=== PATIENT | male | born 1975 | race Caucasian/White ===

== ENCOUNTER 2018-01-17 09:58 | Day surgery (SDC) | payer MEDICAID ==
[2018-01-17] MEDS ORDERED: LR 1,000 ML IV ONE (10:12)
[2018-01-17] MEDS ORDERED: LIDOCAINE 1% 2 ML INJ ID PRN (10:12)
[2018-01-17] MEDS ORDERED: BUPIVACAINE 0.5% 30 ML SDV ONE (10:42)
[2018-01-17] MEDS ORDERED: BACITRACIN 50,000 UNITS/10 ML SYR IRR ONE (10:43)
[2018-01-17] MEDS ORDERED: POLYMYXIN B SULFATE 500,000 UNIT/10 ML SYR IRR ONE (10:43)
[2018-01-17] MEDS ORDERED: ceFAZolin 2 GM/SWFI 20 ML SYR IVP ONE (10:44)
--- NOTE | 2018-01-17 10:44 | PDANEPAE ---
ANE History of Present Illness 42 year old male for mucoid cyst removal from toe. PMHx includes CONCETTA (on CPAP) , seizure D.O./Epilepsy. ANE Past Medical History - Cardiovascular History Hx Hypertension: No Hx Arrhythmias: No Hx Chest Pain: No Hx Coronary Artery / Peripheral Vascular Disease: No Hx CHF / Valvular Disease: No Hx Palpitations: No - Pulmonary History Hx COPD: No Hx Asthma/Reactive Airway Disease: No Hx Recent Upper Respiratory Infection: No Hx Oxygen in Use at Home: Yes Hx Sleep Apnea: Yes Sleep Apnea Screening Result - Last Documented: Positive Pulmonary History Comment: SLEEP APNEA POS W/CPAP - Neurologic History Hx Cerebrovascular Accident: No Hx Seizures: Yes Hx Dementia: No Neurologic History Comment: EPILEPSY. LAST SEIZURE 1.5 WKS AGO - Endocrine History Hx Diabetes: No Hypothyroid: No Hyperthyroid: No Obesity: no - Renal History Hx Renal Disorders: No - Liver History Hx Hepatic Disorders: No - Neurological & Psychiatric Hx Hx Neurological and Psychiatric Disorders: No - Cancer History Hx Cancer: No - Congenital Disorder History Hx Congenital Disorders: No - GI History Hx Gastrointestinal Disorders: No Gastrointestinal History Comment: NEG - Other Health History Other Health History: NEG - Chronic Pain History Chronic Pain: No - Surgical History Prior Surgeries: SINUS SURGERY ANE Review of Systems Review of systems is: negative Review of Systems: - Exercise capacity Exercise capacity: >=4 METS METS (RN): 5 METS ANE Patient History - Allergies Allergies/Adverse Reactions: zonisamide [From Zonegran] Allergy (Verified 01/17/18 10:29) RESPIRATORY SUPRESSION - Home Medications Home medications: home medication list seen and reviewed Home Medications: Fycompa 01/12/18 [Last Taken 01/16/18] Lamictal 01/12/18 [Last Taken 01/16/18] Lipitor 01/12/18 [Last Taken 01/16/18] - NPO status NPO Status: no food or drink >8 hours NPO Since - Liquids (Date): 01/16/18 NPO Since - Liquids (Time): 22:00 NPO Since - Solids (Date): 01/16/18 NPO Since - Solids (Time): 22:00 - Anes Hx Anes Hx: no prior problems - Smoking Hx Smoking Status: Never smoked Marijuana use: No - Alcohol Use Alcohol Use: Rarely - Family Anes Hx Family Anes Hx: neg - N/A Family Hx Anesthesia Complications: NEG ANE Labs/Vital Signs - Vital Signs Vital Signs: reviewed preoperatively; see RN documention for details Blood Pressure: 124/84 Heart Rate: 88 Respiratory Rate: 12 O2 Sat (%): 95 Height: 170.18 cm Weight: 78.471 kg ANE Physical Exam - Airway Neck exam: FROM Mallampati Score: Class 2 Mouth exam: normal dental/mouth exam - Pulmonary Pulmonary: no respiratory distress - Cardiovascular Cardiovascular: regular rate and rhythym - ASA Status ASA Status: III ANE Anesthesia Plan Anesthesia Plan: MAC Total IV Anesthesia: Yes
[2018-01-17] MEDS ORDERED: LIDOCAINE 2% 5 ML SDV ONE (10:45)
[2018-01-17] MEDS ORDERED: ceFAZolin 2 GM/SWFI 2 GM/20 ML SYR IVP ONE (10:50)
--- NOTE | 2018-01-17 10:51 | PDHPUP ---
History & Physical Update H&P update statement: This history and physical update is based on an assessment of the patient which was completed after admission or registration (within 24 hours), but prior to the surgery/procedure. H&P update: H&P reviewed & patient examined, no change in patient's condition since H&P completed
[2018-01-17] MEDS ORDERED: PROPOFOL/EMULSION 500 MG/50 ML BOTTLE IV ONE (10:59)
[2018-01-17] MEDS ORDERED: ONDANSETRON 4 MG/2 ML VIAL IVP PRN (11:21)
[2018-01-17] MEDS ORDERED: HYDROCODONE/APAP 5/325 TAB PO PRN (11:21)
[2018-01-17] MEDS ORDERED: fentaNYL 100 MCG/2 ML INJ IVP PRN (11:21)
[2018-01-17] MEDS ORDERED: NALOXONE HCL 0.4 MG/ML INJ IVP PRN (11:21)
[2018-01-17] MEDS ORDERED: PHENYLEPHRINE HCL 100 MCG/ML SYR IVP PRN (11:21)
[2018-01-17] MEDS ORDERED: DIAZEPAM 5 MG/ML 1 ML SYR IVP PRN (11:21)
[2018-01-17] MEDS ORDERED: LR 500 ML IV PRN (11:21)
[2018-01-17] MEDS ORDERED: epHEDrine SULFATE 10 MG/ML SYR IVP PRN (11:21)
--- NOTE | 2018-01-17 12:14 | GOP ---
[f rep st] OPERATIVE REPORT DATE OF OPERATION: 01/17/2018 SURGEON: Qasim Park DPM LINING BRUSHER: None. PREOPERATIVE DIAGNOSIS: 1. Mucoid cyst, 2nd left toe. 2. Hammertoe, 2nd distal interphalangeal joint, left foot. POSTOPERATIVE DIAGNOSIS: 1. Mucoid cyst, 2nd left toe. 2. Hammertoe, 2nd distal interphalangeal joint, left foot. PROCEDURE PERFORMED: 1. Excision of cyst, left 2nd toe. 2. Arthroplasty, left 2nd distal interphalangeal joint left foot. FINDINGS: SPECIMENS: Cystic lesion was sent for pathologic specimen. ESTIMATED BLOOD LOSS: Less than 5 cc. 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 The patient presented to me for the first time 3 years ago and then again within the last month for a persistent mucoid cy st of the left 2nd toe. The patient would like this removed as it has recurred over the last decade and is draining fluid. The patient understands the risks, benefits, and alternatives to the procedur e presented and wishes to proceed. DESCRIPTION OF PROCEDURE: Under mild sedation, the patient was brought into the operating room, plac ed on the operating table in the supine position foot. Following further IV sedation, 10 cc of 0.5% Marcaine plain was infiltrated about the base of the 2nd left toe. The foot was then scrubbed, prepp ed, and draped in the usual aseptic manner. A sterile pneumatic tourniquet was placed about the vilma ent's well-padded supramalleolar area of the left ankle. An Esmarch bandage was utilized to exsangui donnell the patient's left foot and the tourniquet was inflated to 250 mmHg. Attention was then directed to the area overlying the dorsal aspect of the 2nd distal interphalangeal joint of the left foot where 2 semi-elliptical incisions were made, encompassing the mucoid cyst ove rlying this joint. The cyst as well as the skin structures were ellipsed out and passed from the ope rative field and sent to pathology in a formalin solution. Next, a tenotomy and capsulotomy of the distal interphalangeal joint of the 2nd left toe were perform ed in a transverse fashion. These distal and proximal structures were reflected, thus exposing the h ead of the middle phalanx. A sagittal saw was then used to remove the articular surface of the head of the middle phalanx. This was passed from the operative field. The wound was flushed with copious amounts of sterile normal saline. Any redundant dorsal extensor krause mechanism was removed and pass ed from the operative field. The capsule was then repaired with a 2-0 Vicryl closing the capsule com pletely to avoid recurrence of this cystic lesion. The skin was then closed with interrupted simple 4-0 Prolene sutures. The wound was dressed with Xeroform and a sterile compressive dressing consisti ng of 4 x 4s and Tyler. A light Coban wrap was applied. The tourniquet was dropped and a prompt hyp eremic response was noted to all digits of left foot. The patient tolerated the procedure and anesth esia well. He was transferred to the recovery room with vital signs stable and vascular status intac t to all digits of the left foot. Following a period of postoperative monitoring, the patient will b e discharged home with the following written and oral postoperative instructions. 1. Keep dressing clean, dry, and intact. 2. Ambulate all times with a surgical shoe. 3. Ice and elevate as instructed. 4. All followup questions and concerns should be directed toward [facility] at [phone]. MATERIALS: None. INJECTABLES: 10 cc of 0.5% Marcaine plain. COMPLICATIONS: None. /[id number]/MODL
--- NOTE | 2018-01-17 12:34 | POSTANESTH ---
Post Anesthetic Evaluation Cardiovascular Status: Normal, Stable, Similar to Pre-Op Cond Respiratory Status: Normal, Stable, Similar to Pre-op Cond. Level of Consciousness/Mental Status: Can Participate in Eval, Alert and Oriented Pain Control: Adequate, Prn Tx Ordered Nausea/Vomiting Control: Adequate, Prn Tx Ordered Complications Possibly Related to Anesthesia: None Noted
[2018-01-17 13:22] VITALS: BP 118/68
== END 2018-01-17 13:10 | disposition home or self-care (01) ==
LOC: FSGY 09:58
PROVIDERS: ATTEND Podiatrist Foot & Ankle Surgery
PROC: 0SGQ0ZZ (ICD-10-PCS; principal; 2018-01-17 11:00)
PROC: 0SBQ0ZX Excision of Left Toe Phalangeal Joint, Open Approach, Diagnostic (ICD-10-PCS; principal; 2018-01-17 11:00)
DX: M67.472 Ganglion, left ankle and foot (principal); G40.909 Epilepsy, unspecified, not intractable, without status epilepticus; M20.42 Other hammer toe(s) (acquired), left foot
CPT/HCPCS: J0690; J2704

== ENCOUNTER → 2018-01-31 | Outpatient (CLI) | payer MEDICAID | LOC: BMCIMAGING 16:16 | PROVIDERS: ATTEND Podiatrist Foot & Ankle Surgery | DX: M79.675 Pain in left toe(s) (principal) ==